=== PATIENT | female | born 1935 | race Caucasian/White ===

== ENCOUNTER 2019-01-16 15:22 | Inpatient (IN) | payer OTHER ==
[~2019-01-16] VITALS: Ht 149.9 cm; Wt 59.1 kg
[2019-01-16 19:00] VITALS: BP 113/72
--- NOTE | 2019-01-16 19:30 | NUR ---
The patient, PRINCE HERNANDEZ, 83 y/o, F admitted by CARYL ROSSI MD, was given written information regarding hospital policies, unit procedures and contact persons. Valuables were checked and left with her.
[2019-01-16] MEDS ORDERED: CLON0.5T11 PO (20:05)
[2019-01-16] MEDS ORDERED: MELA3TAB2 PO (20:05)
[2019-01-16] MEDS ORDERED: IPRA3AMP29 NEB (20:05)
[2019-01-16] MEDS ORDERED: POLY17PO29 PO (20:05)
[2019-01-16] MEDS ORDERED: MONT10TA9 PO (20:05)
[2019-01-16] MEDS ORDERED: SUCR1TAB PO (20:05)
[2019-01-16] MEDS ORDERED: PANT20TA2 PO (20:05)
[2019-01-16] MEDS ORDERED: DOCU100C28 PO (20:05)
[2019-01-16] MEDS ORDERED: NORT25CA3 PO (20:05)
[2019-01-16] MEDS ORDERED: CLOP75TA57 PO (20:05)
[2019-01-16] MEDS ORDERED: HYDR-2761 PO (20:05)
[2019-01-16] MEDS ORDERED: BUDE0.5A NEB (20:05)
[2019-01-16] MEDS ORDERED: POTA20TA82 PO (20:05)
[2019-01-16] MEDS ORDERED: ALBU2.5V14 NEB (20:05)
[2019-01-16] MEDS ORDERED: LACT1CAP2 PO (20:05)
[2019-01-16] MEDS ORDERED: ATOR20TA58 PO (20:05)
[2019-01-16] MEDS ORDERED: LEVO25TA4 PO (20:05)
[2019-01-16] MEDS ORDERED: ONDA4TAB12 PO (20:05)
[2019-01-16] MEDS ORDERED: LOPE2TAB27 PO (20:05)
[2019-01-16] MEDS ORDERED: MULT-114 PO (20:05)
[2019-01-16] MEDS ORDERED: HYDROcodone/APAP 5/325MG 1 TAB TABLET PO PRN (20:15)
[2019-01-16] MEDS ORDERED: PIP/TAZO PER PHARMACY MC PRN (20:15)
[2019-01-16] MEDS ORDERED: ONDANSETRON ODT 4 MG TAB.RAPDIS. PO PRN (20:15)
[2019-01-16] MEDS ORDERED: ALBUTEROL SULFATE 2.5 MG/3 ML NEBU. NEB PRN (20:45)
[2019-01-16] MEDS ORDERED: LOPERAMIDE 2 MG CAPSULE PO PRN (20:45)
[2019-01-16] MEDS ORDERED: IPRATRPIUM/ALBUTEROL 0.5/2.5MG 3 ML NEBU. NEB SCH (21:00)
[2019-01-16] MEDS ORDERED: NON FORMULARY ITEM (Melatonin 1 TAB) PO SCH (21:00)
[2019-01-16] MEDS ORDERED: PIPERACILLIN/TAZOBACTAM 2.25 GM in IV NORMAL SALINE 50ML 50 ML IV ONE (21:00)
[2019-01-16] MEDS ORDERED: BUDESONIDE 0.5 MG/2 ML NEBU. NEB SCH (21:00)
[2019-01-16] MEDS: ATORVASTATIN CALCIUM 20 MG TABLET PO SCH (21:46)
[2019-01-16] MEDS: MONTELUKAST SODIUM 10 MG TABLET. PO SCH (21:47)
[2019-01-16] MEDS: clonazePAM 0.5 MG TABLET PO SCH (21:47)
[2019-01-16] MEDS: LACTOBACILLUS RHAMNOSUS GG 1 CAPSULE. PO SCH (21:47)
[2019-01-16] MEDS: DOCUSATE SODIUM 100 MG CAPSULE. PO SCH (21:47)
[2019-01-16] MEDS: SUCRALFATE 1 GM TABLET. PO SCH (21:47)
[2019-01-16] MEDS: methylPREDNISolone SOD SUCC PF 40 MG/ML VIAL. IV SCH (21:48)
[2019-01-16 23:00] VITALS: BP 90/71
[2019-01-17 03:00] VITALS: BP 159/85
[2019-01-17] MEDS ORDERED: IPRATRPIUM/ALBUTEROL 0.5/2.5MG 3 ML NEBU. ONE (05:41)
[2019-01-17] MEDS: BUDESONIDE 0.5 MG/2 ML NEBU. NEB SCH ×2 (05:52→20:10)
[2019-01-17] MEDS: IPRATRPIUM/ALBUTEROL 0.5/2.5MG 3 ML NEBU. NEB SCH ×4 (05:52→20:10)
[2019-01-17] MEDS: LEVOTHYROXINE 25 MCG TABLET. PO SCH (05:56)
[2019-01-17] MEDS: methylPREDNISolone SOD SUCC PF 40 MG/ML VIAL. IV SCH ×3 (05:56→20:53)
[2019-01-17 07:00] VITALS: BP 150/76
[2019-01-17] MEDS: SUCRALFATE 1 GM TABLET. PO SCH ×4 (08:13→20:52)
[2019-01-17] MEDS: MULTIVITAMIN with MINERAL TABLET. PO SCH (08:13)
[2019-01-17] MEDS: CLOPIDOGREL BISULFATE 75 MG TABLET PO SCH (08:13)
[2019-01-17] MEDS: NORTRIPTYLINE 25 MG CAPSULE PO SCH (08:13)
[2019-01-17] MEDS: PANTOPRAZOLE 40 MG TABLET.DR. PO SCH (08:13)
[2019-01-17] MEDS: DOCUSATE SODIUM 100 MG CAPSULE. PO SCH ×2 (08:13→20:53)
[2019-01-17] MEDS: clonazePAM 0.5 MG TABLET PO SCH ×2 (08:14→20:52)
[2019-01-17] MEDS: POTASSIUM CHLORIDE 20 MEQ TABLET.ER. PO SCH ×2 (08:14→17:37)
[2019-01-17] MEDS: LACTOBACILLUS RHAMNOSUS GG 1 CAPSULE. PO SCH ×2 (08:15→20:52)
[2019-01-17] MEDS: PIPERACILLIN/TAZOBACTAM 2.25 GM in IV NORMAL SALINE 50ML 50 ML IV SCH ×4 (08:22→23:39)
[2019-01-17 08:30] LABS: BASO % 0 % (0-3); EOS % 0 % (0-3); HEMATOCRIT 33.2 % (36.0-47.0); HEMOGLOBIN 10.7 g/dL (12.0-15.5); LYMPH # 0.8 x10^3/uL (1.0-4.8); LYMPH % 6 % (24-48); MEAN CORPUSCULAR HEMOGLOBIN 23 pg (25-35); MEAN CORPUSCULAR HGB CONC 32 g/dL (31-37); MEAN CORPUSCULAR VOLUME 70 fL (79-100); MONO # 0.8 x10^3/uL (0.0-1.1); MONO % 6 % (0-9); NEUT # 11.4 x10^3uL (1.8-7.7); NEUT % 87 % (31-73); PLATELET COUNT 279 x10^3/uL (140-400); RED BLOOD COUNT 4.74 x10^6/uL (3.50-5.40); RED CELL DISTRIBUTION WIDTH 19.3 % (11.5-14.5)
[2019-01-17 08:55] LABS: ALBUMIN 3.1 g/dL (3.4-5.0); ALBUMIN/GLOBULIN RATIO 0.9 (1.0-1.7); CREATININE 0.8 mg/dL (0.6-1.0); GFR 68.2; POTASSIUM 3.8 mmol/L (3.5-5.1); TOTAL BILIRUBIN 0.3 mg/dL (0.2-1.0); TOTAL PROTEIN 6.4 g/dL (6.4-8.2)
[2019-01-17] MEDS ORDERED: POLYETHYLENE GLYCOL 3350 17 GM PACKET. PO PRN (09:00)
--- NOTE | 2019-01-17 10:55 | RAD ---
Portable chest, 01/17/2019: HISTORY: Cough The heart size and pulmonary vascularity are normal. There is calcific plaquing and tortuosity of the thoracic aorta. There is minimal linear scarring or atelectasis in the right parahilar region. No pulmonary consolidation is seen. There is no evidence of pleural fluid. The bony structures are demineralized. There are scattered degenerative changes in the spine. IMPRESSION: 1. Aortic atherosclerosis. 2. No acute infiltrates. Electronically signed by: David Jones MD (01/17/2019 10:52 AM) [facility]
[2019-01-17 11:00] VITALS: BP 160/70
[2019-01-17 11:08] LABS: % EOS 1 % (0-5); % LYMPHS 13 % (24-48); % MONOS 6 % (0-10); % PROS 1 % (0-0); % SEGS 79 % (35-66); PLT ESTIMATE ADEQUATE (ADEQUATE)
--- NOTE | 2019-01-17 11:34 | CONS ---
DATE OF CONSULTATION: PULMONARY CONSULTATION ATTENDING PHYSICIAN: Dr. James. REASON FOR CONSULTATION: Dyspnea, wheezing. HISTORY OF PRESENT ILLNESS: The patient is an 83-year-old female, who resides at [facility]. She has been complaining of some shortness of breath and cough with some yellow sputum production. She was seen in the Emergency Room, was treated with Zithromax. The patient was then admitted at [facility] for COPD exacerbation as she continued to have some cough, tightness in the chest and wheezing. She underwent CT angiogram which was reviewed by me and this was dated 01/14/2019. There was no evidence of any pulmonary embolism. The patient had some linear atelectasis in right lower lobe. There were some tiny mucus plugs seen in the left mainstem bronchus distally. She does not have her hearing aids, so it was very difficult to communicate with her and I did most of the history with sign language. Her chest x-ray was also reviewed and no definite infiltrates seen. PAST MEDICAL HISTORY: Significant for hypertension, hyperlipidemia, chronic obstructive airway disease, peripheral vascular disease, anxiety disorder, peripheral neuropathy, major depressive disorder, gastroesophageal reflux disease without esophagitis, history of chronic constipation, ataxia, vitamin D deficiency and dermatitis. PAST SURGICAL HISTORY: None recently. ALLERGIES: None. FAMILY HISTORY: Unremarkable. SYSTEM REVIEW: Ten-point system obtained with some difficulty. Pertinent positives discussed in my history of present illness. MEDICATIONS: Her medications were all reviewed, as listed in the MRAD including antibiotic, Zosyn; IV steroids; DuoNebs and Pulmicort. SOCIAL HISTORY: Resides at [facility]. No significant tobacco history. PHYSICAL EXAMINATION: VITAL SIGNS: Reviewed. Blood pressure stable, pulse ox 91-95% on room air. NECK: Supple. LUNGS: With few rhonchi and occasional wheezes. CARDIOVASCULAR: With a regular rate. ABDOMEN: Soft, nontender. EXTREMITIES: With no pitting edema. LABORATORY DATA: Labs were reviewed. White cell count 13.0, hemoglobin 10.7, platelets are 279. BUN 18 and creatinine 0.8. IMPRESSION: 1. Persistent cough with some shortness of breath and wheezing in a patient who has no significant history of tobacco use. She has apparently failed with antibiotic, steroids. The CAT scan did not show any pulmonary embolism. There were some tiny mucus plugs seen in the distal left mainstem bronchus and some atelectasis in right lower lobe. At this time, I would like to make sure that there is no chronic aspiration and if that is ruled out and she clinically does not improve on current treatment, then bronchoscopy can be considered. 2. No significant history of tobacco use. RECOMMENDATIONS: 1. Discussed with Dr. James. Continue with present aggressive bronchodilators and steroids. 2. Continue with antibiotics. 3. Video swallow and speech evaluation. 4. If clinically does not improve and the video swallow does not show any aspiration, then bronchoscopy can be performed to rule out any airway mucus plug. KAI ROMERO MD DR: SARTHAK/thien JOB#: [id number] / [id number]
--- NOTE | 2019-01-17 12:05 | HP ---
ADMIT DATE: 01/16/2019 HISTORY OF PRESENT ILLNESS: The patient is an 83-year-old female patient who was admitted to [facility] on 01/12/2019 directly from her primary care physician. She has been having recurrent bouts of cough with shortness of breath. The cough is productive of yellowish sputum that has been ongoing for almost 2 weeks. She was seen initially in the Emergency Room, was treated with Zithromax without much improvement, and on the day of admission she was seen at her primary care physician and basically admitted for inpatient antibiotic treatment. We treated her with IV antibiotic using the healthcare-associated pneumonia protocol as she resides at the [facility]. We treated her also with steroids and bronchodilators, Mucinex, Pulmicort and Singulair without really much improvement, and therefore the patient was transferred to [facility] to consult the hospital manager to assist with her management. She did have a chest x-ray and CT angio of the chest and in fact CT angio of the chest showed no evidence of any consolidation. PAST MEDICAL HISTORY: Significant for hypertension, hyperlipidemia, chronic obstructive pulmonary disease, peripheral vascular disease, anxiety disorder, hereditary; idiopathic peripheral neuropathy, major depressive disorder, hypothyroidism, gastroesophageal reflux disease without esophagitis. She has chronic constipation and was diagnosed with ataxia about 18 years ago. She is known to have vitamin D deficiency, dermatitis. She said that she was diagnosed at the [facility] 18 years ago with some form of ataxia. PAST SURGICAL HISTORY: Unremarkable. ALLERGIES: She has no known drug allergies. FAMILY HISTORY: Unremarkable. SOCIAL HISTORY: She is currently a resident of assisted living in [facility]. Her son is her emergency contact. She apparently does not smoke, drink alcohol or use recreational drugs. REVIEW OF SYSTEMS: As per history of present illness. PHYSICAL EXAMINATION: GENERAL: When I examined her today, she was sitting in her recliner, in no apparent distress. She continues to have episodes of sudden severe distressing hacking cough that is productive with mucoid sputum. Denied any chest pain, denied any chills, rigors or fever. When I examined her, she was somewhat pale, but no jaundice, cyanosis, or thyromegaly. No jugular venous distension. No lower limb edema. VITAL SIGNS: Her heart rate was 92, blood pressure 113/72, temperature was 98, respiratory rate was 18 and oxygen saturation was 100% on room air. HEAD, EYES, EARS, NOSE AND THROAT: Showed normocephalic, atraumatic. NECK: Supple. HEART: Showed normal first and second heart sounds. No gallop, rub or murmur. CHEST: Shows central trachea, equally reduced expansion, reduced air entry, vesicular breath sounds. She has bilateral basal crepitation. I could not really appreciate any rhonchi. ABDOMEN: Distended, soft, nontender. NEUROLOGIC: She is awake, alert, responding appropriately. All her cranial nerves intact. She moves extremities without difficulty. She has some form of cerebellar ataxia, but she managed to walk with a walker. LABORATORY DATA: Showed a white cell count of 13,000, hemoglobin 10.7, hematocrit 33, MCV 70 and platelet count 279,000. Her chemistry showed a serum sodium 138, potassium 3.8, chloride 101, bicarbonate 25, anion gap of 12, BUN 18, creatinine 0.8, estimated GFR was 68 mL per minute. Her glucose was 123, calcium was 9. Total bilirubin, AST, ALT, alkaline phosphatase were normal. Total protein was 6.4, albumin was 3.1. ASSESSMENT AND PLAN: In summary, this is an 83-year-old female patient who has been seen by her primary care physician in the Emergency Room and was admitted to [facility] with a complaint of recurrent bouts of severe distressing hacking cough. We treated her with a course of antibiotics, steroids and inhalers as well as Mucinex, Singulair and Pulmicort without really much improvement. Her CT scan was really unrevealing in that there is no consolidation, pleural effusion or pneumothorax. No evidence of cardiomegaly or pulmonary congestion. So, the patient was transferred to [facility] to consult the hospital manager for possible bronchoscopy and/or the Speech Therapy for swallowing evaluation, although her episodes of coughing do not really correspond with the time of her meals. CARYL ROSSI MD DR: MAAME/thien JOB#: [id number] / [id number]
[2019-01-17] MEDS ORDERED: BARIUM SULFATE 40% (APPLE) 148 GM PWD. PO ONE (14:30)
--- NOTE | 2019-01-17 14:58 | RAD ---
Video dysphagia, 01/17/2019: HISTORY: Dysphasia, cough, possible aspiration The swallowing mechanism was examined fluoroscopically in the lateral projection while the patient ingested a variety of food materials mixed with barium. 2.2 minutes of fluoroscopy time was utilized. One video fluoroscopic loop was recorded by member of the speech Department. When ingesting the thin liquids there was mild intermittent laryngeal penetration. No polo aspiration was observed, although the vocal cord region was not optimally visualized in this patient due to her overlying shoulders. When ingesting the honey thickened material the laryngeal penetration abated. The majority of the barium bolus passed normally through the cervical esophagus. The patient ingested the pudding consistency material and the barium coated solids without difficulty. There was very little vallecular or piriform sinus residue following swallowing. IMPRESSION: Mild intermittent laryngeal penetration of the thin liquids which abated when the honey thickened material was utilized. Electronically signed by: David Jones MD (01/17/2019 2:55 PM) [facility]
[2019-01-17 15:00] VITALS: BP 189/92
[2019-01-17 19:00] VITALS: BP 136/74
[2019-01-17] MEDS: ATORVASTATIN CALCIUM 20 MG TABLET PO SCH (20:52)
[2019-01-17] MEDS: MONTELUKAST SODIUM 10 MG TABLET. PO SCH (20:52)
[2019-01-17 23:00] VITALS: BP 146/86
[2019-01-18 03:00] VITALS: BP 149/86
[2019-01-18] MEDS: methylPREDNISolone SOD SUCC PF 40 MG/ML VIAL. IV SCH ×2 (06:17→15:11)
[2019-01-18] MEDS: LEVOTHYROXINE 25 MCG TABLET. PO SCH (06:17)
[2019-01-18] MEDS: PIPERACILLIN/TAZOBACTAM 2.25 GM in IV NORMAL SALINE 50ML 50 ML IV SCH ×3 (06:17→17:43)
[2019-01-18 07:00] VITALS: BP 132/78
[2019-01-18] MEDS: IPRATRPIUM/ALBUTEROL 0.5/2.5MG 3 ML NEBU. NEB SCH ×3 (07:46→15:52)
[2019-01-18] MEDS: BUDESONIDE 0.5 MG/2 ML NEBU. NEB SCH (07:47)
[2019-01-18] MEDS: PANTOPRAZOLE 40 MG TABLET.DR. PO SCH (08:53)
[2019-01-18] MEDS: NORTRIPTYLINE 25 MG CAPSULE PO SCH (08:54)
[2019-01-18] MEDS: LACTOBACILLUS RHAMNOSUS GG 1 CAPSULE. PO SCH (08:54)
[2019-01-18] MEDS: SUCRALFATE 1 GM TABLET. PO SCH ×3 (08:54→17:42)
[2019-01-18] MEDS: CLOPIDOGREL BISULFATE 75 MG TABLET PO SCH (08:54)
[2019-01-18] MEDS: DOCUSATE SODIUM 100 MG CAPSULE. PO SCH (08:54)
[2019-01-18] MEDS: POTASSIUM CHLORIDE 20 MEQ TABLET.ER. PO SCH ×2 (08:54→17:42)
[2019-01-18] MEDS: clonazePAM 0.5 MG TABLET PO SCH (08:54)
[2019-01-18] MEDS: MULTIVITAMIN with MINERAL TABLET. PO SCH (08:54)
--- NOTE | 2019-01-18 09:26 | NUR ---
SW notified Pt is from [facility]. SW confirmed with facility pt is a resident at [facility]. Pt seen by PT/OT/ST and does not have skilled needs.
[2019-01-18 11:00] VITALS: BP 132/81
--- NOTE | 2019-01-18 14:15 | PDOC ---
PULMONARY PROGRESS NOTES Subjective less cough Vitals Vital Signs Date Time Temp Pulse Resp B/P (MAP) Pulse Ox O2 Delivery O2 Flow Rate FiO2 01/18/19 11:48 94 Room Air 01/18/19 11:00 98.2 111 16 132/81 (98) 98.2 General: Alert, No acute distress Lungs: Other (few rhonchi) Cardiovascular: S1 Abdomen: Soft Neuro Exam: Alert Extremities: No Edema Skin: Warm Labs Laboratory Tests Test 01/17/19 08:00 White Blood Count 13.0 x10^3/uL (4.0-11.0) Red Blood Count 4.74 x10^6/uL (3.50-5.40) Hemoglobin 10.7 g/dL (12.0-15.5) Hematocrit 33.2 % (36.0-47.0) Mean Corpuscular Volume 70 fL (79-100) Mean Corpuscular Hemoglobin 23 pg (25-35) Mean Corpuscular Hemoglobin Concent 32 g/dL (31-37) Red Cell Distribution Width 19.3 % (11.5-14.5) Platelet Count 279 x10^3/uL (140-400) Neutrophils (%) (Auto) 87 % (31-73) Lymphocytes (%) (Auto) 6 % (24-48) Monocytes (%) (Auto) 6 % (0-9) Eosinophils (%) (Auto) 0 % (0-3) Basophils (%) (Auto) 0 % (0-3) Neutrophils # (Auto) 11.4 x10^3uL (1.8-7.7) Lymphocytes # (Auto) 0.8 x10^3/uL (1.0-4.8) Monocytes # (Auto) 0.8 x10^3/uL (0.0-1.1) Eosinophils # (Auto) 0.0 x10^3/uL (0.0-0.7) Basophils # (Auto) 0.0 x10^3/uL (0.0-0.2) Segmented Neutrophils % 79 % (35-66) Lymphocytes % 13 % (24-48) Monocytes % 6 % (0-10) Eosinophils % 1 % (0-5) Promyelocytes % 1 % (0-0) Platelet Estimate Adequate (ADEQUATE) Sodium Level 138 mmol/L (136-145) Potassium Level 3.8 mmol/L (3.5-5.1) Chloride Level 101 mmol/L (98-107) Carbon Dioxide Level 25 mmol/L (21-32) Anion Gap 12 (6-14) Blood Urea Nitrogen 18 mg/dL (7-20) Creatinine 0.8 mg/dL (0.6-1.0) Estimated GFR (Cockcroft-Gault) 68.2 BUN/Creatinine Ratio 23 (6-20) Glucose Level 123 mg/dL (70-99) Calcium Level 9.0 mg/dL (8.5-10.1) Total Bilirubin 0.3 mg/dL (0.2-1.0) Aspartate Amino Transf (AST/SGOT) 16 U/L (15-37) Alanine Aminotransferase (ALT/SGPT) 25 U/L (14-59) Alkaline Phosphatase 61 U/L (46-116) Total Protein 6.4 g/dL (6.4-8.2) Albumin 3.1 g/dL (3.4-5.0) Albumin/Globulin Ratio 0.9 (1.0-1.7) Medications Active Scripts Medications Dose Route/Sig Max Daily Dose Days Date Category Clonazepam 0.5 Mg Tablet 1 Tab PO BID 01/16/19 Reported Sucralfate 1 Gm Tablet 1 Tab PO QID 01/16/19 Reported Potassium Chloride 20 Meq Tablet.er 40 Meq PO BID 01/16/19 Reported Miralax (Polyethylene Glycol 3350) 17 Gm Powd.pack 1 Packet PO DAILY PRN MDD 17g 01/16/19 Reported Protonix (Pantoprazole Sodium) 20 Mg Tablet.dr 40 Mg PO BID 01/16/19 Reported Ondansetron Odt (Ondansetron) 4 Mg Tab.rapdis 1 Tab PO PRN Q8HRS PRN 01/16/19 Reported Pamelor (Nortriptyline Hcl) 25 Mg Capsule 50 Mg PO DAILY 01/16/19 Reported Multivitamins With Minerals (Multivitamin With Minerals) 1 Each Tablet 1 Each PO DAILY 01/16/19 Reported Montelukast Sodium Tablet (Montelukast Sodium) 10 Mg Tablet 10 Mg PO HS 01/16/19 Reported Melatonin 3 Mg Tablet 1 Tab PO QHS 01/16/19 Reported Loperamide (Loperamide Hcl) 2 Mg Tablet 4 Mg PO DAILY 01/16/19 Reported Levothyroxine Sodium 25 Mcg Tablet 1 Tab PO DAILY 01/16/19 Reported Acidophilus (Lactobacillus Acidophilus) 1 Each Capsule 1 Each PO BID 01/16/19 Reported Duoneb 0.5-3(2.5) Mg/3 Ml (Albuterol/Ipratropium) 3 Ml Ampul.neb 3 Ml NEB QID 01/16/19 Reported Hydrocodone-Apap 5-325 (Hydrocodone Bit/Acetaminophen) 1 Tab Tablet 1 Tab PO PRN Q8HRS PRN 01/16/19 Reported Docusate Sodium 100 Mg Capsule 1 Cap PO BID 01/16/19 Reported Plavix (Clopidogrel Bisulfate) 75 Mg Tablet 1 Tab PO DAILY 01/16/19 Reported Budesonide 0.5 Mg/2 Ml Ampul.neb 1 Vial NEB BID 01/16/19 Reported Atorvastatin Calcium 20 Mg Tablet 20 Mg PO HS 01/16/19 Reported Albuterol Sulfate Conc Neb Soln (Albuterol Sulfate) 2.5 Mg/0.5 Ml Vial.neb 1 Vial NEB Q6HRS 01/16/19 Reported Impression . 1. Persistent cough with some shortness of breath and wheezing in a patient who has no significant history of tobacco use. She has apparently failed with antibiotic, steroids. The CAT scan did not show any pulmonary embolism. There were some tiny mucus plugs seen in the distal left mainstem bronchus and some atelectasis in right lower lobe. At this time, I would like to make sure that there is no chronic aspiration and if that is ruled out and she clinically does not improve on current treatment, then bronchoscopy can be considered. 2. No significant history of tobacco use. Plan . 1. Clinically better. Continue with present aggressive bronchodilators and steroids. 2. Continue with antibiotics. 3. Video swallow and speech evaluation rec. IMPRESSION: Mild intermittent laryngeal penetration of the thin liquids which abated when the honey thickened material was utilized. 4. No need for bronchoscopy at this point. 5. OK with dc on PO augmentin/ steroid taper KAI ROMERO MD January 18, 2019 14:15
[2019-01-18 15:00] VITALS: BP 99/62
[2019-01-18] MEDS ORDERED: PRED20TA PO (15:28)
[2019-01-18] MEDS ORDERED: AMOX1TAB61 PO (15:28)
--- NOTE | 2019-01-18 16:06 | NUR ---
TANIA faxed clinicals to [facility] and Physician to call facility regarding new Rx orders. TANIA arranged transportation via [employer] between [phone] after speaking with Donita nurse at [facility]. RN will notify family.
--- NOTE | 2019-01-18 19:14 | NUR ---
Discharge Note: Patient was discharged back to [facility]. Patients IV was discontinued without any complications by WASH TEST CHECKER. Called report to Assisted Living and spoke to MACKENZIE Duckworth. Called in prescriptions for patient to [facility]. Patient did not have any further comments or concerns. Patient and family were agreeable with discharge plans. Patient was transported to facility by wheelchair van transportation.
--- NOTE | 2019-01-19 00:08 | PN ---
DATE: 01/18/2019 SUBJECTIVE: The patient is resting, slightly propped up in bed, in no apparent distress. She continued to have episodes of cough that is dry, hacking, very distressing. She apparently has had a video swallowing evaluation yesterday and the recommendation was to continue with regular diet and thin liquids. PHYSICAL EXAMINATION: GENERAL: When I examined her this morning, she was resting slightly propped up in bed, in no apparent respiratory distress, somewhat pale, but no jaundice, cyanosis, or thyromegaly. No jugular venous distention. No lower limb edema. VITAL SIGNS: Her heart rate was 103, blood pressure was 132/78, temperature was 97.3, respiratory rate was 16, and oxygen saturation was 94% on room air. HEAD, EYES, EARS, NOSE AND THROAT: Showed normocephalic, atraumatic. NECK: Supple. HEART: Showed normal first and second heart sounds with no gallop, rub or murmur. CHEST: Clear to auscultation. No crepitation or rhonchi. ABDOMEN: Distended, soft, nontender. No guarding or rigidity. No organomegaly. All hernial orifice intact. Bowel sounds normal. NEUROLOGIC: She was sleepy, but arousable. All cranial nerves intact. She moves extremities without difficulty. She has cerebellar ataxia; however, she is able to walk with a walker. LABORATORY DATA: As of yesterday showed a serum sodium 138, potassium 3.8, chloride 101, bicarbonate 25, anion gap of 12, BUN 18, creatinine 0.8, estimated GFR was 68 mL per minute. Her glucose was 123, calcium was 9. Total bilirubin, AST, ALT, alkaline phosphatase were normal. Total protein was 6.4, albumin was 3.1. Her white cell count was 13,000, hemoglobin 10.7, hematocrit 33, MCV 70 and platelet count 279,000. ASSESSMENT: 1. Persistent cough with shortness of breath and wheezing that has failed outpatient treatment. She was treated with IV antibiotics, steroids and inhalers. Her CT scan of the chest showed no abnormality. She was brought to the [facility] to consult the ad trafficker. Her video swallowing evaluation showed no evidence of aspiration and she is back on a regular diet, thin liquid. PLAN: To continue with IV antibiotic, IV steroids and inhalers and await the ad trafficker evaluation. CARYL ROSSI MD DR: Sal JOB#: [id number] / [id number]
== END 2019-01-18 18:30 | disposition home or self-care (01) | DRG 871 ==
LOC: 5 NORTH 18:19
PROVIDERS: ADMIT Internal Medicine; ATTEND Internal Medicine
DX: A41.9 Sepsis, unspecified organism (principal); J18.9 Pneumonia, unspecified organism; J44.1 Chronic obstructive pulmonary disease with (acute) exacerbation; J98.11 Atelectasis; I10 Essential (primary) hypertension; E03.9 Hypothyroidism, unspecified; E78.5 Hyperlipidemia, unspecified; I73.9 Peripheral vascular disease, unspecified; K21.9 Gastro-esophageal reflux disease without esophagitis; F32.9 Major depressive disorder, single episode, unspecified; F41.9 Anxiety disorder, unspecified; K59.09 Other constipation
CPT/HCPCS: 36415; 71045; 74230; 80053; 85007; 85025; 94640; J2543; J2920; J7620; J7626; 92611